=== PATIENT | male | born 1935 | race Caucasian/White ===

== ENCOUNTER 2017-02-15 11:18 | Inpatient (IN) ==
[2017-02-15] MEDS ORDERED: ALBUTEROL/IPRATROPIUM 3 ML NEB RESP TX STA (16:50)
[2017-02-15] MEDS ORDERED: cefTRIAXone 250 MG VIAL IV STA (17:03)
[2017-02-15 17:11] LABS: Apearance,Urine Slightly Hazy (Clear); Bilirubin,Urine Negative (Negative); Blood, Urine Small mg/dL (Negative); Glucose,Urine (UA) Negative (Negative); Ketones,Urine Negative (Negative); Mucus,Urine Occasional /LPF (Occasional); Nitrite,Urine Negative (Negative); Protein,Urine Negative; RBC,Urine 2 /HPF (0-4); Renal Epithelial Cells,Urine Occasional /HPF (<1); Squamous Epithelial Cell,Urine Occasional /HPF (0-10); Urine Color Yellow (Yellow); Urine Specific Gravity 1.014 (1.001-1.035); Urine Urobilinogen < 2.0 EU/DL (0.2-1.0); WBC,Urine 1 /HPF (0-6)
[2017-02-15] MEDS ORDERED: ALBUTEROL 2.5 MG/3 ML NEB RESP TX PRN (17:42)
[2017-02-15 18:00] LABS: INR 1.1; PT Patient Result 11.1 SECS
[2017-02-15] MEDS ORDERED: LEVOFLOXACIN INJ 750 MG in PREMIX 1 EACH IV SCH (18:00)
[2017-02-15 18:01] LABS: Basophils # 0.1 10*3/uL (0.0-0.2); Basophils % 0.4 % (0.0-0.8); Eosinophils % 0.2 % (0.00-10.9); Hematocrit 34.2 VOL% (42.0-52.0); Hemoglobin 11.3 GM/DL (14.0-18.0); Immature Granulocytes % 0.4 %; Immature Granulocytes Absolute 0.05 #; Lymphocytes # 2.6 10*3/uL (1.4-4.0); Lymphocytes % 20.3 % (21.2-54.2); Mean Corpuscular Hemoglobin 29 PG (27-34); Mean Corpuscular Volume 88.6 FL (87-102); Monocytes # 1.6 10*3/uL (0.11-0.8); Monocytes % 12.2 % (1.7-12.7); Neutrophils # 8.5 10*3/uL (1.4-7.4); Neutrophils % 66.5 % (38.7-73.9); Platelet Count 146 T/CUMM (130-400); Red Blood Count 3.86 MC/CUMM (3.8-5.5); White Blood Count 12.8 T/CUMM (4-12)
[2017-02-15 18:03] LABS: Calcium 8.7 MG/DL (8.5-10.1); Osmolality,Calculated 278.7 MOS/KG (273-304); Potassium 4.3 MMOL/L (3.5-5.1)
[2017-02-15 18:19] LABS: Lactic Acid 1.3 MMOL/L (0.4-2.0)
[2017-02-15] MEDS ORDERED: cefTRIAXone 1,000 MG VIAL ONE (18:26)
[2017-02-15] MEDS ORDERED: LEVOFLOXACIN INJ 150 ML IV ONE (18:26)
[2017-02-15] MEDS ORDERED: ALBUTEROL/IPRATROPIUM 3 ML NEB RESP TX SCH (19:00)
[2017-02-15] MEDS ORDERED: guaiFENesin/DM ER 600-30 MG TABLET PO SCH (21:00)
[2017-02-15] MEDS: BENZONATATE 100 MG CAPSULE PO PRN (21:29)
[2017-02-15] MEDS: ATENOLOL 25 MG TABLET PO SCH (22:08)
[2017-02-15] MEDS: sitaGLIPtin 100 MG TABLET PO SCH (22:08)
[2017-02-15] MEDS: ASPIRIN EC 81 MG TABLET PO SCH (22:08)
[2017-02-15] MEDS: amLODIPine 2.5 MG TABLET PO SCH (22:08)
[2017-02-15] MEDS: APIXABAN 2.5 MG TABLET PO SCH (22:08)
[2017-02-16] MEDS: ALBUTEROL/IPRATROPIUM 3 ML NEB RESP TX SCH ×4 (00:33→19:17)
[2017-02-16] MEDS ORDERED: DEXTROSE 50% 25 GM/50 ML VIAL IV PRN (04:46)
[2017-02-16] MEDS ORDERED: GLUCAGON 1 MG VIAL IM PRN (04:46)
[2017-02-16 05:34] LABS: Basophils % 0.3 % (0.0-0.8); Eosinophils % 0.3 % (0.00-10.9); Hematocrit 32.3 VOL% (42.0-52.0); Hemoglobin 10.3 GM/DL (14.0-18.0); Immature Granulocytes % 0.4 %; Immature Granulocytes Absolute 0.04 #; Lymphocytes # 2.3 10*3/uL (1.4-4.0); Lymphocytes % 24.7 % (21.2-54.2); Mean Corpuscular HGB Conc 31.9 GM/DL (32-36); Mean Corpuscular Hemoglobin 29 PG (27-34); Mean Platelet Volume 10.8 FL (9.6-12.0); Monocytes # 1.4 10*3/uL (0.11-0.8); Monocytes % 14.6 % (1.7-12.7); Neutrophils # 5.6 10*3/uL (1.4-7.4); Neutrophils % 59.7 % (38.7-73.9); Platelet Count 126 T/CUMM (130-400); Red Blood Count 3.59 MC/CUMM (3.8-5.5); White Blood Count 9.4 T/CUMM (4-12)
[2017-02-16 06:13] LABS: Calcium 8.4 MG/DL (8.5-10.1); Osmolality,Calculated 283.4 MOS/KG (273-304); Potassium 4.2 MMOL/L (3.5-5.1)
[2017-02-16] MEDS: INSULIN REGULAR 100 UNIT/ML SUBCUT SCH ×4 (08:00→22:42)
[2017-02-16] MEDS: sitaGLIPtin 100 MG TABLET PO SCH (09:48)
[2017-02-16] MEDS: amLODIPine 2.5 MG TABLET PO SCH (09:49)
[2017-02-16] MEDS: APIXABAN 2.5 MG TABLET PO SCH ×2 (09:49→22:33)
[2017-02-16] MEDS: BENZONATATE 100 MG CAPSULE PO PRN ×2 (15:59→22:33)
[2017-02-16] MEDS: ATENOLOL 25 MG TABLET PO SCH (22:32)
[2017-02-16] MEDS: ASPIRIN EC 81 MG TABLET PO SCH (22:33)
[2017-02-17] MEDS: ALBUTEROL/IPRATROPIUM 3 ML NEB RESP TX SCH ×4 (01:15→20:34)
[2017-02-17 02:28] LABS: Basophils % 0.3 % (0.0-0.8); Eosinophils # 0.1 10*3/uL (0.0-0.87); Eosinophils % 1.3 % (0.00-10.9); Hematocrit 31.1 VOL% (42.0-52.0); Hemoglobin 9.8 GM/DL (14.0-18.0); Immature Granulocytes % 0.6 %; Immature Granulocytes Absolute 0.06 #; Lymphocytes # 2.9 10*3/uL (1.4-4.0); Lymphocytes % 29.6 % (21.2-54.2); Mean Corpuscular HGB Conc 31.5 GM/DL (32-36); Mean Corpuscular Hemoglobin 29 PG (27-34); Mean Corpuscular Volume 91.2 FL (87-102); Mean Platelet Volume 10.9 FL (9.6-12.0); Monocytes # 1.6 10*3/uL (0.11-0.8); Monocytes % 15.8 % (1.7-12.7); Neutrophils # 5.2 10*3/uL (1.4-7.4); Neutrophils % 52.4 % (38.7-73.9); Platelet Count 132 T/CUMM (130-400); Red Blood Count 3.41 MC/CUMM (3.8-5.5); Red Cell Distribution Width 14.2 % (9.3-17.3); White Blood Count 9.9 T/CUMM (4-12)
[2017-02-17 03:06] LABS: Bilirubin,Total 1.4 MG/DL (0.2-1.0); Calcium 8.2 MG/DL (8.5-10.1); Osmolality,Calculated 285.3 MOS/KG (273-304); Potassium 4.4 MMOL/L (3.5-5.1); Total Protein 6.2 G/DL (6.4-8.3)
[2017-02-17 03:42] LABS: Band Neutrophils 1 % (0-10); Eosinophils 1 % (0-10); Lymphocytes 23 % (20-55); Segmented Neutrophils 62 % (50-85); Total Cells Counted 100
[2017-02-17 03:44] LABS: Elliptocytes 1+; Platelet Estimate Adequate
[2017-02-17] MEDS: SODIUM CHLORIDE 0.45% 1,000 ML IV SCH ×2 (07:15→18:53)
[2017-02-17] MEDS: INSULIN REGULAR 100 UNIT/ML SUBCUT SCH ×4 (08:47→22:03)
[2017-02-17] MEDS: amLODIPine 2.5 MG TABLET PO SCH (09:34)
[2017-02-17] MEDS: sitaGLIPtin 100 MG TABLET PO SCH (09:34)
[2017-02-17] MEDS: APIXABAN 2.5 MG TABLET PO SCH ×2 (09:34→22:03)
[2017-02-17] MEDS ORDERED: AZITHROMYCIN INJ 250 MG in SODIUM CHLORIDE 0.9% 250 ML IV SCH (22:00)
[2017-02-17] MEDS ORDERED: AZITHROMYCIN INJ 250 MG in SODIUM CHLORIDE 0.9% 150 ML IV SCH (22:00)
[2017-02-17] MEDS: BENZONATATE 100 MG CAPSULE PO PRN (22:03)
[2017-02-17] MEDS: ASPIRIN EC 81 MG TABLET PO SCH (22:03)
[2017-02-17] MEDS: ATENOLOL 25 MG TABLET PO SCH (22:03)
[2017-02-18] MEDS: ALBUTEROL/IPRATROPIUM 3 ML NEB RESP TX SCH ×2 (02:03→07:49)
[2017-02-18 06:23] LABS: Basophils # 0.1 10*3/uL (0.0-0.2); Basophils % 0.7 % (0.0-0.8); Eosinophils # 0.2 10*3/uL (0.0-0.87); Eosinophils % 2.4 % (0.00-10.9); Hematocrit 31.9 VOL% (42.0-52.0); Hemoglobin 10.2 GM/DL (14.0-18.0); Immature Granulocytes % 0.7 %; Immature Granulocytes Absolute 0.06 #; Lymphocytes # 2.5 10*3/uL (1.4-4.0); Lymphocytes % 30.9 % (21.2-54.2); Mean Corpuscular Hemoglobin 29 PG (27-34); Mean Corpuscular Volume 90.4 FL (87-102); Mean Platelet Volume 11.1 FL (9.6-12.0); Monocytes # 1.2 10*3/uL (0.11-0.8); Monocytes % 14.7 % (1.7-12.7); Neutrophils # 4.2 10*3/uL (1.4-7.4); Neutrophils % 50.6 % (38.7-73.9); Platelet Count 152 T/CUMM (130-400); Red Blood Count 3.53 MC/CUMM (3.8-5.5); White Blood Count 8.2 T/CUMM (4-12)
[2017-02-18 06:47] LABS: Eosinophils 1 % (0-10); Hypochromasia 1+; Lymphocytes 18 % (20-55); Microcytosis 1+; Platelet Estimate Decreased; Segmented Neutrophils 66 % (50-85); Total Cells Counted 100
[2017-02-18 06:51] LABS: Albumin 2.8 G/DL (3.4-5.0); Bilirubin,Total 1.1 MG/DL (0.2-1.0); Calcium 8.5 MG/DL (8.5-10.1); Osmolality,Calculated 284.3 MOS/KG (273-304); Potassium 4.5 MMOL/L (3.5-5.1); Total Protein 6.5 G/DL (6.4-8.3)
[2017-02-18 07:03] LABS: Risk Ratio 2.97; VLDL CHOLESTEROL 16.4 MG/DL
[2017-02-18 08:12] VITALS: BP 137/69
[2017-02-18] MEDS: INSULIN REGULAR 100 UNIT/ML SUBCUT SCH (08:25)
[2017-02-18] MEDS: APIXABAN 2.5 MG TABLET PO SCH (09:36)
[2017-02-18] MEDS: BENZONATATE 100 MG CAPSULE PO PRN (09:37)
[2017-02-18] MEDS: sitaGLIPtin 100 MG TABLET PO SCH (09:37)
[2017-02-18] MEDS ORDERED: cefTRIAXone 500 MG in SYRINGE 1 EACH IV SCH (21:00)
[2017-02-19 16:27] LABS: Procalcitonin, S 0.16 ng/mL (<=0.15)
== END 2017-02-18 10:30 | disposition home or self-care (01) | DRG 190 ==
LOC: N.ED 11:18 → SUATTDRO 17:39 → N.EDINP 17:39 → N.2E 18:38
PROVIDERS: ADMIT Internal Medicine; ATTEND Internal Medicine